=== PATIENT | male | born 1975 | race Caucasian/White ===

== ENCOUNTER 2020-01-11 15:44 | Emergency (ER) | payer SELFPAY ==
[~2020-01-11] VITALS: Ht 185.4 cm; Wt 88.5 kg
--- NOTE | 2020-01-11 15:54 | NUR ---
CAME IN FOR L SIDED HEAD PAIN, R EYE TWITCHING AND RUE NUMBNESS X 4 DAYS, TO ER EBD 10, HOOKED TO MONITOR, CHANGED TO HOSP GOWN,WARM BLANKET PROVIDED, AWAITING MD SHAHID
--- NOTE | 2020-01-11 16:28 | NUR ---
DR CABRERA AT BEDSIDE
[2020-01-11] MEDS ORDERED: ACETAMINOPHEN ES 500 MG TABLET ONE (16:44)
[2020-01-11] MEDS ORDERED: IBUPROFEN 600 MG TABLET PO ONE ×2 (16:45→17:00)
[2020-01-11 16:52] LABS: BASOPHILS % (AUTO) 0.7 % (0.0-2.0); EOSINOPHILS % (AUTO) 1.1 % (0.0-6.0); HEMATOCRIT 45 % (39-51); HEMOGLOBIN 15.4 g/dL (13.5-17.5); LYMPHOCYTES # (AUTO) 1.1 /CMM (0.8-4.8); LYMPHOCYTES % (AUTO) 18.4 % (20.0-44.0); MEAN CORPUSCULAR HGB CONC 34 g/dl (31.0-36.0); MEAN CORPUSCULAR VOLUME 86 fL (80-96); MONOCYTES # (AUTO) 0.3 /CMM (0.1-1.30); MONOCYTES % (AUTO) 5.7 % (2.0-12.0); NEUTROPHILS # (AUTO) 4.3 /CMM (1.8-8.9); NEUTROPHILS % (AUTO) 74.1 % (43.0-81.0); PLATELET COUNT (AUTO) 192 /CMM (150-450); RED BLOOD CELL COUNT(AUTO) 5.21 MIL/uL (4.5-6.0); WHITE BLOOD COUNT (AUTO) 5.8 K/uL (4.3-11.0)
[2020-01-11] MEDS ORDERED: ACETAMINOPHEN ES 500 MG TABLET PO ONE (17:00)
[2020-01-11 17:05] LABS: CALCIUM, SERUM 8.7 mg/dL (8.5-10.1); CREATININE 1.6 mg/dL (0.6-1.3); POTASSIUM 3.9 mmol/L (3.5-5.1)
[2020-01-11 18:32] VITALS: BP 139/84
--- NOTE | 2020-01-11 18:32 | NUR ---
Patient discharged to home in stable condition. Written and verbal after care instructions given. Patient verbalizes understanding of instruction.
== END 2020-01-11 18:33 | disposition home or self-care (01) ==
LOC: ER 15:44
DX: G44.209 Tension-type headache, unspecified, not intractable (principal); R42 Dizziness and giddiness
CPT/HCPCS: 36415; 70450-TC; 80048-TC; 85025-TC; 85652-TC; 86140-TC